=== PATIENT | female | born 1985 | race Caucasian/White ===

== ENCOUNTER 2016-10-13 22:01 | Emergency (ER) | payer MEDICAID, OTHER ==
[~2016-10-13] VITALS: Ht 170.2 cm; Wt 75.0 kg
[~2016-10-13 22:01] MED LIST: HYDR-762 PO; IBUP800T25 PO; ONDA4TAB8 PO
[2016-10-13 22:32] VITALS: Ht 170.2 cm; Wt 75.0 kg
[2016-10-14] MEDS ORDERED: ONDANSETRON (ODT) 4 MG TAB ODT STA (00:59)
[2016-10-14] MEDS ORDERED: MECLIZINE 12.5 MG TAB PO ONE (01:00)
--- NOTE | 2016-10-14 01:25 | ERD ---
ER Documentation Chief Complaint Date/Time DATE: 10/14/16 TIME: 01:22 Chief Complaint FALL TODAY; FEVER FOR 3 DAYS; bilateral ear pain congestion DIFF HEARING HPI 31-year-old female presents to emergency department for complaints of fever bilateral ear pain for 3 days. Patient is complaining of generalized weakness and fatigability that today, because of weakness, she fell and hit her left elbow and wrist and her left knee. Patient is complaining of nausea and vomiting with the ear pain and the fever. Patient did not take an medications up to help with symptoms. Patient denies any head injury. Patient denies any loss of consciousness. Patient denies any blurry vision. Patient denies any numbness or tingling. ROS All systems reviewed and are negative except as per history of present illness. Medications Home Meds Active Scripts Ondansetron Hcl* (Zofran*) 4 Mg Tablet, 4 MG PO Q6H for NAUSEA AND/OR VOMITING, #30 TAB Prov:ALIZE LOPEZ 11/03/15 Hydrocodone Bit-Acetaminophen* ([place]*) 10-325 Mg Tablet, 1 TAB PO Q6 Y for PAIN , #15 TAB Prov:WARREN SPICER MD 11/08/14 Ibuprofen* (Motrin*) 800 Mg Tab, 800 MG PO Q6H Y for PAIN AND OR ELEVATED TEMP, #30 TAB Prov:JAVIER WATT CV TECH 11/03/14 Allergies Allergies: Coded Allergies: No Known Allergy (Unverified , 11/08/14) PMhx/Soc Medical and Surgical Hx: pt denies Medical Hx History of Surgery: Yes (LEFT KNEE SURGERY X 2; csection; appendix) Anesthesia Reaction: No Hx Neurological Disorder: No Hx Respiratory Disorders: No Hx Cardiac Disorders: No Hx Psychiatric Problems: No Hx Miscellaneous Medical Probl: No Hx Alcohol Use: No Hx Substance Use: No Hx Tobacco Use: No Smoking Status: Never smoker FmHx Family History: diabetes Physical Exam Vitals Vital Signs Date Time Temp Pulse Resp B/P Pulse Ox O2 Delivery O2 Flow Rate FiO2 10/13/16 22:32 95.4 77 20 106/67 99 Physical Exam GENERAL: The patient is well developed and appropriate for usual state of health, in no apparent distress. HEENT: Atraumatic. Ears: Bilateral tympanic membrane noted to be erythematous and bulging. No ear canal swelling. No ear discharge. Nose: normal nasal turbinates, no erythema or swelling. Normal nasal discharge. Throat: oropharynx clear. No tonsillar swelling or tonsillar exudates. No lymphadenopathy. CHEST: Clear to auscultation bilaterally. There are no rales, wheezes or rhonchi. HEART: Regular rate and rhythm. No murmurs, clicks, rubs or gallops. No S3 or S4. ABDOMEN: Soft, nontender and nondistended. Good bowel sounds. No rebound or guarding. No gross peritonitis. No gross organomegaly or masses. No Clayton sign or McBurney point tenderness. BACK: No midline or flank tenderness. EXTREMITIES: Equal pulses bilaterally. There is no peripheral clubbing, cyanosis or edema. No focal swelling or erythema. Full range of motion. Grossly neurovascularly intact. NEURO: Alert and oriented. Cranial nerves 2-12 intact. Motor strength in all 4 extremities with 5/5 strength. Sensation grossly intact. Normal speech and gait. Positive bilateral Mary Ellen-Hallpike exam. Negative Romberg sign. Negative pronator drift. No nystagmus. SKIN: There is no apparent rash or petechia. The skin is warm and dry. HEMATOLOGIC AND LYMPHATIC: There is no evidence of excessive bruising or lymphedema. No gross cervical, axillary, or inguinal lymphadenopathy. Results 24 hrs Current Medications Medications (Trade) Dose Ordered Sig/Prasanna Route PRN Reason Start Time Stop Time Status Last Admin Dose Admin Meclizine HCl (Antivert) 25 mg ONCE ONCE PO 10/14/16 01:00 10/14/16 01:01 DC 10/14/16 01:51 Ondansetron HCl (Zofran Odt) 4 mg ONCE STAT ODT 10/14/16 00:59 10/14/16 01:01 DC 10/14/16 01:18 Patient was given Zofran here in the emergency department. After treatment, patient was able to tolerate po fluids here in the emergency department without any vomiting. There is no signs and symptoms of dehydration. Meclizine was given for vertigo symptoms. PROCEDURE: CT head, without contrast. CLINICAL INDICATION: Dizziness and vomiting. TECHNIQUE: Noncontrast CT examination of the head, with axial, sagittal and coronal reformatted images. Automated dose exposure control was employed. CTDI: 44.11 and DLP: 630.20. COMPARISON: None. FINDINGS: No acute hemorrhage. Subarachnoid spaces are substantially preserved and symmetric. Ventricles are unremarkable. No mass effect. Gomez-white matter distinction is preserved without evident decreased attenuation to suggest acute or recent infarct. Sinuses and osseous structures are unremarkable. IMPRESSION: No acute process in the head. RPTAT: [facility] Olayinka Traore Physician Date Time Electronically viewed and signed by Physician Damián on 10/14/2016 02:20 PROCEDURE: X-ray left elbow CLINICAL INDICATION: Left elbow pain TECHNIQUE: 3 views left elbow COMPARISON: None FINDINGS: No acute fracture or dislocation. Soft tissues unremarkable. IMPRESSION: No acute fracture. RPTAT: [facility] Olayinka Traore Physician Date Time Electronically viewed and signed by Physician Damián on 10/14/2016 02:24 RS/ CC: NATHAN WARREN CV TECH PROCEDURE: X-ray left knee CLINICAL INDICATION: Left knee pain TECHNIQUE: 3 views left knee COMPARISON: Left knee plain film series dated 11/03/2014 FINDINGS: No acute fracture or dislocation. Soft tissues unremarkable. IMPRESSION: RPTAT: [facility] Olayinka Traore Physician Date Time Electronically viewed and signed by Physician Damián on 10/14/2016 02:25 RS/ CC: NATHAN WARREN CV TECH Procedures/MDM Medical Decision Making: Patient's pain is most likely consistent with a elbow contusion and knee contusion or sprain. There is no suspicion for neurovascular compromise. Patient has intact sensation and circulation of the affected extremity. There is low suspicion for septic arthritis. Patient does not have any fever. Radiology exams of the affected area does not show any fracture or dislocation. Patient symptoms of ear pain and fever and dizziness is likely consistent with bilateral otitis media. No symptoms of otitis externa or mastoiditis. No foreign body in the ear. No TM perforation. No cerumen impaction. Patient has benign positional vertigo most likely from the otitis media congestion in both ears..There is low suspicion for neurological emergencies at this time since patients neurologic exam is normal. Patient did not have any altered level consciousness, changes in balance or memory after incident. Patients CT scan of the head does not show any neurological emergencies at this time. Disposition: Home.Prescription was given for amoxicillin, Zyrtec, ibuprofen, meclizine , Zofran is advised to follow-up with primary care doctor in 2-3 days for reevaluation of symptoms. Patient is advised to avoid using Q-tips to clean the ear. Patient was advised to elevate the affected area and apply ice on affected area. Patient was advised that if symptoms are worse, numbness, tingling, high fever, unable to move joint, worsening symptoms, to return to emergency department immediately. Otherwise, patient is advised to follow up with the primary care doctor in 5-7 days for reevaluation of symptoms. Dispostion: Home. Stable Departure Diagnosis: Primary Impression: Otitis media Otitis media type: serous Laterality: bilateral Chronicity: acute Recurrence: not specified as recurrent Qualified Code: H65.03 - Bilateral acute serous otitis media, recurrence not specified Additional Impressions: Benign positional vertigo Laterality: bilateral Qualified Code: H81.13 - Benign positional vertigo, bilateral Knee pain Laterality: left Chronicity: acute Qualified Code: M25.562 - Acute pain of left knee Elbow contusion Encounter type: initial encounter Laterality: left Qualified Code: S50.02XA - Contusion of left elbow, initial encounter Condition: Stable Patient Instructions: Benign Positional Vertigo, Contusion, Elbow, Knee Pain, Uncertain Cause, Otitis Media, Abx Tx (Adult) Additional Instructions: Prescription was given for amoxicillin, Zyrtec, ibuprofen, meclizine , Zofran is advised to follow-up with primary care doctor in 2-3 days for reevaluation of symptoms. Patient is advised to avoid using Q-tips to clean the ear. Patient was advised to elevate the affected area and apply ice on affected area. Patient was advised that if symptoms are worse, numbness, tingling, high fever, unable to move joint, worsening symptoms, to return to emergency department immediately. Otherwise, patient is advised to follow up with the primary care doctor in 5-7 days for reevaluation of symptoms. NATHAN WARREN NP Oct 14, 2016 01:25
--- NOTE | 2016-10-14 02:20 | RADRPT ---
PROCEDURE: CT head, without contrast. CLINICAL INDICATION: Dizziness and vomiting. TECHNIQUE: Noncontrast CT examination of the head, with axial, sagittal and coronal reformatted im ages. Automated dose exposure control was employed. CTDI: 44.11 and DLP: 630.20. COMPARISON: None. FINDINGS: No acute hemorrhage. Subarachnoid spaces are substantially preserved and symmetric. Ventricles ar e unremarkable. No mass effect. Gomez-white matter distinction is preserved without evident decreased attenuation t o suggest acute or recent infarct. Sinuses and osseous structures are unremarkable. IMPRESSION: No acute process in the head. RPTAT: [facility] Physician Damián Date Time Electronically viewed and signed by Physician Damián on 10/14/2016 02:20 RS/
--- NOTE | 2016-10-14 02:25 | RADRPT ---
PROCEDURE: X-ray left elbow CLINICAL INDICATION: Left elbow pain TECHNIQUE: 3 views left elbow COMPARISON: None FINDINGS: No acute fracture or dislocation. Soft tissues unremarkable. IMPRESSION: No acute fracture. RPTAT: [facility] Physician Damián Date Time Electronically viewed and signed by Olayinka Traore Physician on 10/14/2016 02:24 RS/
--- NOTE | 2016-10-14 02:25 | RADRPT ---
PROCEDURE: X-ray left knee CLINICAL INDICATION: Left knee pain TECHNIQUE: 3 views left knee COMPARISON: Left knee plain film series dated 11/03/2014 FINDINGS: No acute fracture or dislocation. Soft tissues unremarkable. IMPRESSION: RPTAT: [facility] Physician Damián Date Time Electronically viewed and signed by Olayinka Traore Physician on 10/14/2016 02:25 RS/
[2016-10-14] MEDS ORDERED: IBUP-1542 PO (02:43)
[2016-10-14] MEDS ORDERED: MECL12.574 PO (02:43)
[2016-10-14] MEDS ORDERED: AMO500 PO (02:43)
[2016-10-14] MEDS ORDERED: CETI10CA PO (02:43)
[2016-10-14] MEDS ORDERED: ONDA4TAB14 PO (02:43)
[2016-10-14 03:04] VITALS: BP 113/81; PULSE 88; RESP 18; TEMP 97.4
== END 2016-10-14 03:03 | disposition home or self-care (01) ==
LOC: FTE 22:01
DX: H65.03 Acute serous otitis media, bilateral (principal); H81.13 Benign paroxysmal vertigo, bilateral; S89.92XA Unspecified injury of left lower leg, initial encounter; S50.02XA Contusion of left elbow, initial encounter; W18.09XA Striking against other object with subsequent fall, initial encounter; Y92.9 Unspecified place or not applicable
CPT/HCPCS: 70450; 73080; 73562; Z7502; Z7610